=== PATIENT | female | born 1990 | race Caucasian/White ===

== ENCOUNTER 2023-09-21 02:18 | Inpatient (IN) | payer BC, SELFPAY ==
[2023-09-21] VITALS (35 sets, daily range): BP systolic 110–143; BP diastolic 57–89; PULSE 66–102; RESP 16; TEMP 36.3–37.2; O2SAT 97–100; BMI 29.1
[2023-09-21] MEDS: 0.9% Saline Lock 10 ML Syringe IV (02:30)
--- NOTE | 2023-09-21 02:46 | HP.PCM.OB_ITS ---
HPI - General General Date of Admission: 09/21/23 HPI Narrative DANI BERRY, is a 33 F at 37.6 weeks gestation who presents in spontaneous, active labor. has been uncomplicated. History of LEEP and HSV. Maternal Data Information KATLIN Calculator Estimated Delivery Date Method Current WG Current Estimate 10/06/23 Manual 37w 6d PFSH [facility] Medical History (Updated 09/21/23 @ 02:50 by Brie Friend CNM) Depression Genital herpes affecting Headache HPV (human papilloma virus) infection Home Medications acyclovir 400 mg tablet 400 mg PO TID 09/21/23 [History Last Taken 09/20/23 20:00] vitamin#30 30 mg iron-10 mg iron-folic acid 1 mg-omg3 capsule 1 cap PO DAILY 09/21/23 [History Last Taken 09/20/23 08:00 1 cap] Allergy/AdvReac Type Severity Reaction Status Date / Time latex Allergy Mild Itching Verified 09/21/23 02:26 Surgical History (Updated 09/21/23 @ 02:37 by Shahida Winters) History of surgery Hx of tonsillectomy [place] teeth extracted ROS Eyes Eyes: Denies blurry vision, change in vision or spots in vision ENT HEENT: Denies dizziness or headache(s) Cardiovascular Cardiovascular: Denies abdominal pain, chest pain or dyspnea Respiratory/Chest Respiratory/Chest: Denies cough, dyspnea, shortness of breath at rest or shortness of breath with exertion Gastrointestinal Gastrointestinal: Denies abdominal pain, diarrhea or vomiting Genitourinary Genitourinary: Denies change in urinary stream, difficulty urinating or dysuria Musculoskeletal Musculoskeletal: Reports none Integumentary Integumentary: Denies rash Neurologic Neurologic: Denies dizziness, headache(s), memory loss or weakness Psychiatric Psychiatric: Reports none Vital Signs Vital Signs Vital Signs: 09/21/23 02:10 09/21/23 02:10 09/21/23 02:10 Temperature Temperature Source Temporal Pulse Rate 102 H Blood Pressure 143/89 H BP Systolic 143 BP Diastolic 89 09/21/23 02:10 Temperature 98.6 F Temperature Source Pulse Rate Blood Pressure BP Systolic BP Diastolic Physical Exam Const alert, oriented x3 and no apparent distress General Appearance: cooperative Orientation / Consciousness: awake Exam Limitations: no limitations HEENT normocephalic Head and Scalp: normal to inspection Eyes General Eye: normal appearance of both eyes Neck full ROM and no lymphadenopathy Lymph Lymphatic: no lymphadenopathy noted Chest inspection of chest normal Resp normal respiratory effort, normal air movement and clear to auscultation bilaterally Effort and Inspection: able to speak in complete sentences and symmetric chest movement Cardio regular rate and regular rhythm GI normal to inspection, nondistended, normoactive bowel sounds Back/Spine normal ROM Extremity full ROM and no calf tenderness Skin no rashes or lesions noted General Skin Exam: no breakdown Neuro oriented x3 and CN's II-XII intact bilaterally Psych mental status grossly normal and thought process normal Labs Labs Labs: Blood Type Pending Antibody Screen Pending Hct Pending Hgb Pending Syphilis Total Ab Pending GBS negative Assessment & Plan (1) Spontaneous onset of labor: (2) Active labor at term: (3) History of herpes genitalis: (4) History of depression: PLAN: Plan Admit to labor and delivery /-1 Start IV and run fluids per orders GBS negative Desires unmedicated labor and delivery Anticipate Dr. Rich notified of admission and is collaborating physician
[2023-09-21 02:51] LABS: Absolute Lymphocyte Count 1.62 X10^3/uL (0.83-4.51); Absolute Neutrophil Count 7.7 X10^3/uL (2.0-7.7); Basophil# 0.02 X10^3/uL; Basophil% 0.2 % (0-1); Eosinophil# 0.04 X10^3/uL; Eosinophils% 0.4 % (0-5); Hematocrit 34.6 % (37-47); Hemoglobin 11.5 g/dL (12.0-15.0); Lymphocyte # 1.62 X10^3/ul (0.83-4.51); Lymphocyte % 16.1 % (19-41); Mean Corp Hgb Conc 33.2 g/dL (32-36); Mean Corpuscular Hgb 28.8 pg (27.0-32.0); Mean Corpuscular Volume 86.5 fL (81-99); Mean Platelet Vol. 10.8 fl (6.2-12.0); Monocyte# 0.61 X10^3/uL; Monocyte% 6.1 % (0-10); NRBC Flagged by Analyzer 0 % (0-5); Neutrophil # 7.73 X10^3/uL (2.7-7.7); Neutrophil % 76.6 % (47-70); Platelet Count 225 K/mm3 (150-450); RBC Distribution Width CV 13.5 % (11.6-14.6); RBC Distribution Width SD 42.5 fl (35.1-43.9); White Blood Count 10.1 K/mm3 (4.4-11.0)
[2023-09-21] MEDS: Oxytocin 10 UNITS/ML Vial IM (03:24)
[2023-09-21 03:25] LABS: Syphilis Antibodies Non-reactive
--- NOTE | 2023-09-21 03:38 | EX.PCM.OBRPT ---
Assessment & Plan (1) Precipitous delivery: (2) (spontaneous vaginal delivery): (3) Care and examination of lactating mother: (4) History of depression: Maternal Data Information KATLIN Calculator Estimated Delivery Date Method Current WG Current Estimate 10/06/23 Manual 37w 6d Vaginal Delivery Maternal Presentation Maternal Presentation: Active Labor and Spontaneous Rupture of Membranes Operative Information Date of Procedure: 09/21/23 Pre-Operative Diagnosis: Term gestation, Spontaneous onset of labor Post-Operative Diagnosis: , Precipitous delivery, live female infant Surgery / Procedure Performed: Spontaneous Vaginal Delivery Type of Anesthesia: None Estimated Blood Loss: 150 Time of Delivery: 03:21 Findings Description of Procedure: Patient arrived to unit and quickly progressed to complete dilation. With minimal maternal effort, head delivered over intact perineum followed by remainder of body. Vigorous female placed on maternal abdomen and was attended to by nursing staff. Pitocin IM x 1 dose given for active management of the third stage of labor. 3 vessel cord clamped and cut by patient's mother and infant placed immediately skin to skin with patient. Placenta delivered spontaneously and intact. Fundus firm 2 below U. Vagina and perineum intact. EBL 150 cc/ APGARS 8/9. Patient and bonding well at this time. Dr. Rich updated on delivery.
--- NOTE | 2023-09-21 03:58 | EX.PCM.OBRPT ---
Assessment & Plan (1) (spontaneous vaginal delivery): (2) Precipitous delivery: (3) Care and examination of lactating mother: Maternal Data Information KATLIN Calculator Estimated Delivery Date Method Current WG Current Estimate 10/06/23 Manual 37w 6d Vaginal Delivery Maternal Presentation Maternal Presentation: Active Labor and Spontaneous Rupture of Membranes Maternal Presentation: Patient quickly progressed to complete dilation. With minimal maternal effort, head delivered over intact perineum followed by remainder of body. Vigorous female placed on maternal abdomen and was attended to by nursing staff. Pitocin IM x 1 given for active management of the third stage of labor. 3 vessel cord clamped and cut by patient's mother and placed skin to skin. Placenta delivered spontaneously and intact. Vagina and perineum intact. EBL 150cc. APGARS 8/9. Patient and bonding well at this time. Dr. Rich notified of delivery. Operative Information Date of Procedure: 09/21/23 Pre-Operative Diagnosis: Term gestation, spontaneous onset of labor, spontaneous rupture of membranes Post-Operative Diagnosis: , precipitous delivery, live female Surgery / Procedure Performed: Spontaneous Vaginal Delivery Type of Anesthesia: None Estimated Blood Loss: 150 Time of Delivery: 03:21 Findings Presentation: Vertex Amniotic Membrane Rupture Type: Spontaneous Time of Membrane Rupture: 0100 Amniotic Fluid Description: Clear Placental Delivery Description: Spontaneous Placenta Disposition: [facility] Cord Vessel Description: 3 Vessels Cord Entanglement: None Infant A Gender: Female (1 minute): 8 (5 minute): 9 Delayed Cord Clamping: Yes Post Vaginal Delivery Medications Given After Delivery: IM Pitocin Episiotomy Description: None Laceration: None Complication Complications: None
[2023-09-21] MEDS: Oxytocin 15 Units/NS 250ml 15 UNITS/250 ML IV.SOLN 83 UNITS IV (04:40)
[2023-09-22] VITALS (7 sets, daily range): BP systolic 109–112; BP diastolic 59–72; PULSE 64–83; RESP 16; TEMP 36.3–36.9; O2SAT 99–100
--- NOTE | 2023-09-22 11:20 | PCM.PN.OB ---
Subjective Subjective Pain well-controlled. Average lochia. Objective Data Objective Data Vital Signs: Vital Signs Temp Pulse Resp BP Pulse Ox O2 Del Method 97.4 F L 69 16 111/67 100 Room Air 09/22/23 08:28 09/22/23 08:28 09/22/23 08:28 09/22/23 08:28 09/22/23 03:33 09/22/23 03:33 Oxygen Delivery Method Room Air Weight: 84.4 kg Body Mass Index (BMI) 29.1 Intake & Output: Intake and Output for Last 24 Hours 09/20/23 09/21/23 09/22/23 23:59 23:59 23:59 Intake Total 250 / 250 Output Total 150 / 150 Balance 100 / 100 Lab / Micro Data 09/21/23 02:30 Physical Exam Const alert and no apparent distress Narrative: Fundus firm, below umbilicus. Assessment & Plan (1) (spontaneous vaginal delivery): PLAN: day #1 status post vaginal delivery. Patient is doing well is breast-feeding. Patient would like to be discharged home today.
--- NOTE | 2023-09-22 11:22 | PCM.DC.SUM ---
Providers Date of Admission: 09/21/23 Primary Care Physician: Dr. Gurjit Mahan MD Reason For Visit: VAGINAL DELIVERY Diagnosis Discharge Diagnosis (1) (spontaneous vaginal delivery): Status: Acute Code(s): O80 - Encounter for full-term uncomplicated delivery Plan: day #1 status post vaginal delivery. Patient is doing well is breast-feeding. Patient would like to be discharged home today. Medications at Discharge Home Medications acyclovir 400 mg tablet 400 mg PO TID 09/21/23 vitamin#30 30 mg iron-10 mg iron-folic acid 1 mg-omg3 capsule 1 cap PO DAILY 09/21/23 Hospital Course Operations None Summary of Care Provided Minutes Spent on Discharge: 17 Hospital Course: 33-year-old multigravida female arrived on 09/21/2023 in the microsoft dynamics manager architect in spontaneous labor at 37-6/7 weeks. She delivered precipitously without difficulty. day #1 she was ambulating, urinating and tolerating regular diet and desired discharge home. was breast-feeding and doing well. May take [id number] pain medications as needed. Follow-up in the office in 1 to 2 weeks in 6 weeks as needed. 17 minutes spent on rounds and discharge today. Weight / BMI Weight Weight: 84.4 kg Body Mass Index (BMI) 29.1 ABG / Lab / Microbiology Data 09/21/23 02:30 D/C Instructions Discharge Diet: No restrictions May resume sexual activity in: 6 weeks Call your doctor if your incision/area has: Continuous Slow Oozing, Sudden Increased Bleeding, Foul Smelling Discharge and Swelling at the incision site Call your doctor if you observe: Fever of 101 or Higher and Inability to urinate Please Follow Up With: Renee Rich MD When: Follow up with our office in 1-2 and 6 weeks or as needed. [phone] Meaningful Use Info Meaningful Use Diagnoses (Choose all that apply): None applicable Discharge Plan Admission Admit Date/Time: 09/21/23 02:18 Primary Reason for Your Visit: Vaginal delivery Attending Provider: Brie Friend Primary Care Provider: Gurjit Mahan Discharge Orders/Prescriptions Prescriptions: No Action acyclovir 400 mg tablet 400 mg PO TID PNV #[id number] 30 mg iron-10 mg iron-1 mg capsule 1 cap PO DAILY Referrals / Follow Up: Gurjit Mahan MD [Primary Care Provider] - Disposition Disposition (needs filled in before D/C Order can be placed): Home, Self Care
--- NOTE | 2023-09-22 11:43 | CASEMGMT ---
Social Work Assessment Labor and Delivery Unit Patient Address:[address] [place], [place] [address] Phone number: [phone] Date of Referral: 09/21/23 Time of Referral:? 030 Referred By: Brie Friend Date of Intervention: ??09/22/23 Time of Intervention:? 0900 Reason for Referral:? hx anxiety, depression, father with etoh Sw completed chart review and acknowledges social work consult entered due to maternal mental health history for anxiety and depression and for maternal grandpa history of alcohol abuse. Sw presented to bedside and introduced self to mother of baby (SANJAY- Hannah) and explained reason for sw involvement. Sw completed psychosocial assessment, provided support and education. History obtained from: medical records, MOB Household composition: MOB states that currently residing in her house is herself, her sister and her two older children (uW, 16 y/o and Vanda, 2 y/o). SANJAY states that she lives in a duplex and her mother and step father live on the opposite side of her so she has a lot of built in support. MOB denies any concerns with housing. Patient's parent/guardian status:? ?MOB states that she and FOB (would not provide name due to FOB not being involved) dated for a short period of time, roughly three months, when she was informed that OLIVE has been identified as a sex offender. MOB states that she was provided information by FOPablo's ex- that indicated he is no longer permitted to be with their daughter unsupervised. MOB states that his ex- wanted to inform her of the concerns due to knowing that SANJAY has a daughter. MOB states that around that same time she also started to notice that her 2 year old did not want to be along with FOPablo. MOB states that when she learned of all the concerns, and noticed her daughter behaving differently, she broke things off with FOPablo. SANJAY then states that she found out she was and that she was having a girl, and told FOPablo that she does not want him involved at all. SANJAY states that so far OLIVE has been respectful of her wishes and has not tried to start any issues. - MOB states that she and OLIVE met at work, they work together. MOB states that when she returns to work she does not believe that there will be any issues because her piping supervisor was made aware of the concerns and will not allow any problems to occur. Medical History: ?SANJAY is 3, para 3- now 3 following labor and delivery of . SANJAY received routine care during with [facility]. SANJAY presented to [facility] and delivered baby via vaginal delivery on 09/21/23 at 37 weeks gestation. Baby girl, named Violette Rodrigez, was born weighing 7lb 14oz and her apgars were 8 and 9 at one and five minutes of life, respectfully. Baby will be followed by Dr. Albert. SANJAY states that she is breast feeding and it is going well. - SANJAY reports that she had carried a surrogate baby in between her son and her 2 year old daughter. Educational Status:? SANJAY reports that she obtained some college education but no degree. MOB denies concerns with reading, learning or comprehension. Financial Status: SANJAY states that she is currently employed as a master machinist and is able to take 8 week off of work. Infant Supplies:?? All necessary baby supplies obtained, including: car seat, safe sleep space, clothes, diapers, wipes and a breast pump. Childcare/Caregiver(s):? SANJAY states that when she is working her sister or her mom will be her childcare providers. Transportation:?? No transportation barriers, reliable transportation available Programs/Agencies Involved: SANJAY states that she is not connected to any community resources that help her financially, however she is connected to counseling supports through [facility]. ??? Children Services/Legal Issues:???No history of involvement. MOB states that OLIVE has a history with Children Services with his own children, but not with MOB. No issues or concerns at this time warranting referral. Behavioral Health Issues: ??Mental Health History: MOB states that she is sure that OLIVE has mental health history, but she is not sure what his diagnoses are. MOB states that she has been diagnosed with anxiety and depression. SANJAY denies experiencing any baby blues or depression following her former deliveries. ??? Substance Use History:?SANJAY denies substance use prior to and during . ? Family History:??SANJAY reports that her father is an alcoholic, but she does not have a relationship with him and does not know if he will even come to visit with baby. ??? Drug Screens: ??No urine screens observed during chart review. Family/Social Stressors:? MOB states that the only stressor she has at this time is the fact that FOPablo is a sex offender. MOB states that she is not sure if he has legal trouble/ involvement or charges. MOB states that she only knows that he is not permitted to see his biological daughter unsupervised. MOB states that he has not caused any problems with her and she will not allow him around her 2 year old or her baby. - Sw encouraged MOB to have her 2 year old evaluated to see if she was victimized. Sw stated that MOB can call the dry cleaning manager or [facility]. MOB expressed understanding. Support Systems: MOB states that her sister and her mom are her two biggest supports. Depression/Shaken Baby/Safe Sleeping:? Sw talked at length with MOB regarding signs and symptoms of baby blues and depression. Sw provided literature for MOB to review. Sw encouraged MOB to meet with her counselor through [facility] a couple of times during her journey to ensure that she is taking care of herself/ her mental health. MOB expressed understanding and agreement. Sw educated MOB on shaken baby prevention and ABCs of safe sleep. MOB expressed understanding ASSESSMENT:? MOB and baby admitted following labor and delivery. MOB observed nursing baby when sw started assessment. MOB cared for baby appropriately in loving manner. MOB was talkative and open regarding current issues with FOB. MOB made and maintained eye contact with sw during assessment. MOB with all necessary supplies and lots of natural supports in place. MOB aware of her mental health and triggers and is connected to mental health resources. PLAN:? MOB and baby to be discharged when medically ready. ?No other services requested or indicated. Christian Shaw, BALANCE CLERK, LINE INSTALLATION SUPERVISOR
== END 2023-09-22 12:15 | disposition home or self-care (01) | DRG 807 ==
LOC: WPOUT 02:41 → WP 02:41
PROVIDERS: Admitting Provider Advanced Practice Midwife; PCP Family Medicine; Visit Provider Advanced Practice Midwife
DX: O42.92 Full-term premature rupture of membranes, unspecified as to length of time between rupture and onset of labor (principal); Z37.0 Single live birth; O62.3 Precipitate labor; Z3A.37 37 weeks gestation of pregnancy; Z63.0 Problems in relationship with spouse or partner; Z87.42 Personal history of other diseases of the female genital tract
CPT/HCPCS: 59025; 59050; 85025; 86780; 86850; 86900; 86901; 99221; A4216; G0378